=== PATIENT | female | born 1995 | race Caucasian/White ===

== ENCOUNTER 2022-02-05 01:05 | Emergency (ER) | payer BC, MEDICAID ==
[~2022-02-05] VITALS: Ht 170.2 cm; Wt 75.7 kg
[2022-02-05 01:28] VITALS: BP 120/77
[2022-02-05] MEDS ORDERED: ACETAMINOPHEN EXTRA STRENGTH 500 MG TAB PO ONE (01:30)
--- NOTE | 2022-02-05 01:30 | NUR ---
Dr. Anne at triage to exam patient.
--- NOTE | 2022-02-05 01:34 | NUR ---
Patient ambulated to bed 12.
--- NOTE | 2022-02-05 01:38 | NUR ---
Asa rivera in [facility] - 02/05/22 at 0146 by [email or web address] PT TAKEN TO RADIOLOGY
--- NOTE | 2022-02-05 01:46 | NUR ---
PT TAKEN TO RADIOLOGY
--- NOTE | 2022-02-05 01:57 | NUR ---
26 Y/O FEMALE BIBS, C/O CP X6 HRS. PT STATES SHE WAS GROCERY SHOPPING AND CARRYING HEAVY GROCERIES, PAIN STARTED IN HER RIGHT ARM AND SPREAD TO HER CHEST. SHE STATES EVERY 10 MINUTES IT LASTS FOR 40 SECONDS OF PRESSURE (7/10) W/ NO SOB. DENIES N/V/D; SKIN IS PINK/WARM/DRY; AAOX4 WITH EVEN AND STEADY GAIT; LUNGS CLEAR BL; HR EVEN AND REGULAR; PT DENIES ANY FEVER, SOB, OR COUGH AT THIS TIME; PATIENT STATES INTERMITENT PAIN OF 8/10 AT THIS TIME; VSS; PATIENT POSITIONED FOR COMFORT; HOB ELEVATED; BEDRAILS UP X1; BED DOWN. ER MD MADE AWARE OF PT STATUS. DENIES HX, ALLERGIES, OR MEDS.
[2022-02-05 02:20] VITALS: BP 120/77
--- NOTE | 2022-02-05 02:22 | NUR ---
Patient discharged with v/s stable. Written and verbal after care instructions given and explained. Patient verbalized understanding. Ambulatory with steady gait. All questions addressed prior to discharge. Advised to follow up with PMD. VSS, A/OX4, AMBULATORTY, UNLABORED BREATHING, AND CALM DEMEANOR.
== END 2022-02-05 02:20 | disposition home or self-care (01) ==
LOC: MED 01:05
DX: R07.89 Other chest pain (principal)
CPT/HCPCS: 71045; 93005; 99283

== ENCOUNTER 2022-04-05 21:21 | Emergency (ER) | payer BC, MEDICAID ==
[~2022-04-05] VITALS: Ht 162.6 cm; Wt 74.8 kg
[2022-04-05 21:35] VITALS: BP 103/74
--- NOTE | 2022-04-05 21:39 | NUR ---
patient to lobby
--- NOTE | 2022-04-05 22:14 | NUR ---
Patient ambulated to bed 7.
--- NOTE | 2022-04-05 22:16 | NUR ---
Patient BIB by family from home. C/O laceration x today. Patient reported, cut herself by accident while was cutting a box. A/O,X4, left thumb laceration, bleeding control.
[2022-04-05] MEDS ORDERED: LIDOCAINE MPF 1% 10 MG/ML VIAL IM ONE (23:00)
--- NOTE | 2022-04-06 00:11 | NUR ---
Patient has a 1.5 cm laceration to left thumb. Dr. Ames applied sutures using sterile technique. Edges well approximated. Site cleansed with NSS. No bleeding noted. Pt tolerated well.
[2022-04-06 00:44] VITALS: BP 112/80
--- NOTE | 2022-04-06 00:44 | NUR ---
Patient discharged with v/s stable. Written and verbal after care instructions given and explained for Laceration care, Adult. Patient verbalized understanding. Ambulatory with steady gait. All questions addressed prior to discharge. Advised to follow up with PMD.
== END 2022-04-06 00:44 | disposition home or self-care (01) ==
LOC: MED 21:21
DX: S61.012A Laceration without foreign body of left thumb without damage to nail, initial encounter (principal); W45.8XXA Other foreign body or object entering through skin, initial encounter; Y93.89 Activity, other specified; Y92.89 Other specified places as the place of occurrence of the external cause; Y99.8 Other external cause status
CPT/HCPCS: 12001; 90471; 90715; 96372; 99284; J2001

== ENCOUNTER 2022-11-15 12:31 | Emergency (ER) | payer BC ==
[~2022-11-15] VITALS: Ht 157.5 cm; Wt 61.2 kg
[2022-11-15 12:38] VITALS: BP 131/83
--- NOTE | 2022-11-15 13:17 | NUR ---
PT AMBULATED TO BED 6
[2022-11-15] MEDS ORDERED: IMI50 PO (13:32)
[2022-11-15] MEDS ORDERED: ACET-8001 PO (13:32)
--- NOTE | 2022-11-15 13:35 | NUR ---
27 Y/O FEMALE BIB SELF PT C/O MIGRAINE HEADACHE X1.5 MONTHS AND PALPITATIONS X1 2 WEEKS. DENIES ANY CHEST PAIN AT THIS TIME. DENIES ANY SOB, ABD PAIN. SEEN AT [facility] RX TYLENOL WITHOUT RELIEF PMH: DENIES
--- NOTE | 2022-11-15 13:39 | NUR ---
Patient discharged with v/s stable. Written and verbal after care instructions ABOUT PALPITATIONS AND MIGRAINE HEADACHE given and explained. Patient alert, oriented and verbalized understanding of instructions. Ambulatory with steady gait. All questions addressed prior to discharge. ID band removed. Patient advised to follow up with PMD. Rx of EXCEDRIN, IMITREX given. Patient educated on indication of medication including possible reaction and side effects. Opportunity to ask questions provided and answered.
== END 2022-11-15 13:39 | disposition home or self-care (01) ==
LOC: MED 12:31
DX: G43.909 Migraine, unspecified, not intractable, without status migrainosus (principal); R07.89 Other chest pain; Z79.899 Other long term (current) drug therapy
CPT/HCPCS: 93005; 99283